=== PATIENT | male | born 1950 | race Caucasian/White ===

== ENCOUNTER → 2020-04-26 | Outpatient (CLI) | payer MEDICARE, OTHER ==
[~2020-04-26] MED LIST: CLARITIN10 MG PO; COLACE 100MG C100 MG PO; ELIQUIS 2.5 MG2.5 MG PO; FERROUS SULFAT325 M2 PO; FLOMAX 0.4 MG0.4 MG PO; LOPRESSOR 25 MG25 MG PO; METHOCARBAMOL500 MG PO; NITROSTAT0.4 MG SL; NORCO 7.5-3251 EACH PO; OMNICEF 300 MG300 MG PO; PROTONIX40 MG PO
== END ==
LOC: EXRD 08:55
DX: K74.60 Unspecified cirrhosis of liver (principal)
CPT/HCPCS: 76705

== ENCOUNTER → 2021-05-23 | Outpatient (CLI) | payer MEDICARE, OTHER ==
[2021-05-23 11:21] LABS: BUN/CREATININE RATIO 16 (0-10)
[2021-05-24 12:14] LABS: CREATININE, URINE 41.1 mg/dL (Not Estab.); MICROALB/CREAT RATIO <7 (0-29)
== END ==
LOC: MRI 10:30
PROVIDERS: Internal Medicine Nephrology
DX: N18.9 Chronic kidney disease, unspecified (principal); M51.16 Intervertebral disc disorders with radiculopathy, lumbar region
CPT/HCPCS: 36415; 72100; 72158; 80053; 81001; 82043; 82570; 84156; A9577

== ENCOUNTER → 2021-06-29 | Outpatient (CLI) | payer MEDICARE, OTHER | LOC: MAMO 09:45 | DX: R92.8 Other abnormal and inconclusive findings on diagnostic imaging of breast (principal); N62 Hypertrophy of breast | CPT/HCPCS: 76642-LT; 77066; G0279 ==

== ENCOUNTER 2021-09-26 16:19 | Emergency (ER) | payer MEDICARE, OTHER ==
[2021-09-26 19:34] LABS: RED BLOOD COUNT 3.65 M/UL (4.20-5.50); WHITE BLOOD COUNT 6.8 K/UL (4.5-11.0)
[2021-09-26 20:01] LABS: BUN/CREATININE RATIO 11 (0-10)
[2021-09-27] MEDS ORDERED: HYDROCODON-ACE1 EAC4 PO (01:04)
== END 2021-09-27 01:27 | disposition home or self-care (01) ==
LOC: ER1 16:19
PROVIDERS: Physician Assistant
DX: M25.552 Pain in left hip (principal); G89.29 Other chronic pain; M79.89 Other specified soft tissue disorders; E78.5 Hyperlipidemia, unspecified; I10 Essential (primary) hypertension; Z96.641 Presence of right artificial hip joint
CPT/HCPCS: 71045; 73130; 73502; 80053; 82550; 82553; 83880; 84484; 85025; 93005; 96372; 99284; J1885

== ENCOUNTER 2021-10-09 16:18 | Emergency (ER) | payer MEDICARE, OTHER ==
[~2021-10-09 16:18] MED LIST changes: +HYDROCODON-ACE1 EAC4 PO
[2021-10-09] MEDS ORDERED: IBUPROFEN600 MG PO (17:36)
== END 2021-10-09 17:45 | disposition home or self-care (01) ==
LOC: ER1 16:18
DX: M25.561 Pain in right knee (principal); E78.5 Hyperlipidemia, unspecified; Z88.8 Allergy status to other drugs, medicaments and biological substances
CPT/HCPCS: 73562; 73590; 99283

== ENCOUNTER → 2021-10-10 | Outpatient (CLI) | payer MEDICARE, OTHER ==
[~2021-10-10] MED LIST changes: +IBUPROFEN600 MG PO
== END ==
LOC: HEART 5 08:30
DX: I48.91 Unspecified atrial fibrillation (principal); M79.89 Other specified soft tissue disorders; I35.0 Nonrheumatic aortic (valve) stenosis
CPT/HCPCS: 93306

== ENCOUNTER → 2021-10-13 | Outpatient (CLI) | payer MEDICARE, OTHER | LOC: CT 09:00 | DX: K70.31 Alcoholic cirrhosis of liver with ascites (principal); M25.352 Other instability, left hip; M79.604 Pain in right leg; M79.605 Pain in left leg; R93.6 Abnormal findings on diagnostic imaging of limbs | CPT/HCPCS: 73721; 93970 ==

== ENCOUNTER → 2021-11-07 | Outpatient (CLI) | payer MEDICARE, OTHER ==
[~2021-11-07] MED LIST changes: +BUMETANIDE1 MG PO; +COZAAR50 MG PO; +CRESTOR20 MG PO; +CYCLOBENZAPRINE10 MG PO; +DAILY VALUE1 EACH PO; +ELIQUIS5 MG PO; +FERROUS SULFAT325 MG PO; +FOLIC ACID PO; +MAGNESIUM500 MG PO; +NEURONTIN400 MG PO; +ONDANSETRON HCL4 MG PO; +PEPCID40 MG PO; +PERCOCET 10-321 EACH PO; +POTASSIUM CHLO20 ME1 PO; +TOPROL XL50 MG PO; +TREMFYA100 MG/11 INJ; +VITAMIN B12 PO
[2021-11-07 10:17] LABS: RED BLOOD COUNT 3.57 M/UL (4.20-5.50); WHITE BLOOD COUNT 7.2 K/UL (4.5-11.0)
[2021-11-07 10:42] LABS: BUN/CREATININE RATIO 12 (0-10)
== END ==
LOC: EDSTATUS 09:00 → OPSV2 09:00
PROVIDERS: Orthopaedic Surgery
DX: Z01.818 Encounter for other preprocedural examination (principal); M87.9 Osteonecrosis, unspecified
CPT/HCPCS: 36415; 71046; 80048; 85027; 93005

== ENCOUNTER → 2021-12-07 | Outpatient (CLI) | payer MEDICARE, OTHER | LOC: CT 08:00 | DX: I70.202 Unspecified atherosclerosis of native arteries of extremities, left leg (principal) | CPT/HCPCS: 36415; 75635; 82565; 84520; Q9967 ==

== ENCOUNTER → 2021-12-28 | Outpatient (CLI) | payer MEDICARE, OTHER | LOC: KOH-I 09:16 | DX: M96.1 Postlaminectomy syndrome, not elsewhere classified (principal); M51.24 Other intervertebral disc displacement, thoracic region | CPT/HCPCS: 72146 ==

== ENCOUNTER → 2022-01-17 | Outpatient (CLI) | payer MEDICARE, OTHER ==
[~2022-01-17] MED LIST changes: +COZAAR25 MG PO; +DICLOFENAC 1% GEL TOP; +KENALOG CREAM 015 GM TOP
[2022-01-17 13:54] LABS: HEMOGLOBIN 12.1 gm/dl (14.0-17.5); RED BLOOD COUNT 3.97 M/UL (4.20-5.50); WHITE BLOOD COUNT 7.4 K/UL (4.5-11.0)
[2022-01-17 14:25] LABS: BUN/CREATININE RATIO 22 (0-10)
== END ==
LOC: OPSV2 12:19 → EDSTATUS 12:30
PROVIDERS: Orthopaedic Surgery
DX: Z01.818 Encounter for other preprocedural examination (principal); M87.9 Osteonecrosis, unspecified
CPT/HCPCS: 80048; 85027; 93005